=== PATIENT | male | born 1980 | race Caucasian/White ===

== ENCOUNTER → 2016-12-09 | Outpatient (CLI) | payer OTHER ==
--- NOTE | 2016-12-09 15:59 | PCVCIMAG ---
APPROVED REPORT Study performed: 12/09/2016 14:34:46 EXAM: Comprehensive 2D, Doppler, and color-flow Echocardiogram Status: routine BSA: 2.17 HR: 65 bpm Rhythm: NSR Other Information Study Quality: Good Indications Mitral Valve Prolapse. Hyperlipidemia. 2D Dimensions LVEF(%): 69.98 (>50%) IVSd: 9.36 (7-11mm)LVOT Diam: 23.27 (18-24mm) LVDd: 59.76 mm LVPWs: 25.15 mm PWd: 11.43 (7-11mm)Ascending Ao: 30.96 (22-36mm) LVDs: 35.75 (25-40mm) Left Atrium: 39.23 (27-40mm) Aortic Root: 29.16 mm LV Single Plane 4CH: 57.58 % LV Single Plane 2CH: 58.74 %Friedman's LVEF: 58.16 % Biplane EF: 60.5 % Volumes Left Atrial Volume (Systole) Single Plane 4CH: 74.97 mLSingle Plane 2CH: 59.08 mL LA ESV Index: 33.00 mL/m2 Aortic Valve AoV Peak Bossman.: 1.46 m/s AO Peak Gr.: 8.49 mmHgLVOT Max P.11 mmHg LVOT Max V: 0.84 m/s CHAGO Vmax: 2.46 cm2 Mitral Valve E/A Ratio: 1.1 MV Decel. Time: 180.05 ms MV E Max Bossman.: 0.60 m/s MV A Bossman.: 0.53 m/s TDI E/Lateral E': 6.67E/Medial E': 7.50 Medial E' Bossman.: 0.08 m/s Lateral E' Bossman.: 0.09 m/s Pulmonary Valve PV Peak Gr.: 3.33 mmHg Pulmonary Vein P Vein S: 0.45 m/sP Vein A: 0.43 m/s P Vein D: 0.48 m/sP Vein A Dur.: 124.6 msec P Vein S/D Ratio: 0.94 Left Ventricle Left ventricle is at the upper limits of normal. There is normal left ventricular wall thickness. Left ventricular systolic function is normal. The left ventricular ejection fraction is within the normal range. LVEF is 60-65%. The left ventricular diastolic function is normal. Right Ventricle The right ventricle is normal size. The right ventricular systolic function is normal. Atria The left atrium size is normal. The right atrium size is normal. Aortic Valve The aortic valve is normal in structure. Trace aortic regurgitation. There is no aortic valvular stenosis. Mitral Valve Mitral Valve Prolapse Trace to mild mitral regurgitation. No evidence of mitral valve stenosis. Tricuspid Valve The tricuspid valve is normal in structure. There is no tricuspid valve regurgitation noted. Pulmonic Valve The pulmonary valve is normal in structure. There is no pulmonic valvular regurgitation. Great Vessels The aortic root is normal in size. IVC is normal in size and collapses with >50% inspiration Pericardium There is no pericardial effusion. <Conclusion> Left ventricle is at the upper limits of normal. There is normal left ventricular wall thickness. LVEF is 60-65%. The left ventricular diastolic function is normal. The right ventricle is normal size. The left atrium size is normal. The aortic valve is normal in structure. Mitral Valve Prolapse Trace to mild mitral regurgitation. There is no tricuspid valve regurgitation noted. There is no pericardial effusion.
== END | disposition home or self-care (01) ==
LOC: PCVCIMAG 14:28
PROVIDERS: ATTEND Internal Medicine Cardiovascular Disease
DX: I08.0 Rheumatic disorders of both mitral and aortic valves (principal); E78.00 Pure hypercholesterolemia, unspecified; F32.9 Major depressive disorder, single episode, unspecified; I44.0 Atrioventricular block, first degree; K21.9 Gastro-esophageal reflux disease without esophagitis; Z79.899 Other long term (current) drug therapy
CPT/HCPCS: 80061; 93005; 93306; G0463

== ENCOUNTER → 2019-01-13 | Outpatient (CLI) | payer OTHER ==
--- NOTE | 2019-01-19 16:57 | PCVCIMAG ---
APPROVED REPORT Study performed: 01/13/2019 11:25:07 EXAM: Comprehensive 2D, Doppler, and color-flow Echocardiogram Patient Location: Echo lab Status: routine BSA: 2.17 HR: 63 bpmBP: 120/85 mmHg Rhythm: NSR Other Information Study Quality: Good Risk Factors: Cardiac Risk Factors: Hyperlipidemia Indications Mitral Valve Prolapse 2D Dimensions IVSd: 13.27 (7-11mm)LVOT Diam: 24.22 (18-24mm) LVDd: 53.09 mm PWd: 12.92 (7-11mm)Ascending Ao: 31.48 (22-36mm) LVDs: 44.09 (25-40mm) Left Atrium: 41.29 (27-40mm) Aortic Root: 36.42 mm LV Single Plane 4CH: 60.97 % LV Single Plane 2CH: 56.09 % Biplane EF: 56.9 % Volumes Left Atrial Volume (Systole) Single Plane 4CH: 68.03 mLSingle Plane 2CH: 87.95 mL LA ESV Index: 38.00 mL/m2 Aortic Valve AoV Peak Bossman.: 1.26 m/s AO Peak Gr.: 6.33 mmHgLVOT Max P.52 mmHg LVOT Max V: 1.06 m/s CHAGO Vmax: 3.89 cm2 Mitral Valve E/A Ratio: 0.9 MV Decel. Time: 230.45 ms MV E Max Bossman.: 0.51 m/s MV A Bossman.: 0.57 m/s IVRT: 152.25 ms TDI E/Lateral E': 5.67E/Medial E': 5.67 Medial E' Bossman.: 0.09 m/s Lateral E' Bossman.: 0.09 m/s Pulmonary Vein P Vein S: 0.32 m/sP Vein A: 0.58 m/s P Vein D: 0.42 m/sP Vein A Dur.: 72.7 msec P Vein S/D Ratio: 0.76 Tricuspid Valve TR Peak Bossman.: 1.42 m/s TR Peak Gr.: 8.09 mmHg Left Ventricle The left ventricle is normal size. There is normal LV segmental wall motion. There is normal left ventricular wall thickness. Left ventricular systolic function is normal. The left ventricular ejection fraction is within the normal range. LVEF is 60-65%. Right Ventricle The right ventricle is normal size. The right ventricular systolic function is normal. Atria The left atrium size is normal. The right atrium size is normal. Aortic Valve The aortic valve is normal in structure. No aortic regurgitation is present. There is no aortic valvular stenosis. Mitral Valve Mitral Valve prolapse. More pronounced in posterior leaflet. Mild mitral regurgitation. No evidence of mitral valve stenosis. Tricuspid Valve The tricuspid valve is normal in structure. Trace tricuspid regurgitation. Pulmonic Valve The pulmonary valve is normal in structure. There is no pulmonic valvular regurgitation. Great Vessels The aortic root is normal in size. IVC is normal in size and collapses >50% with inspiration. Pericardium There is no pericardial effusion. <Conclusion> The left ventricle is normal size. LVEF is 60-65%. The right ventricle is normal size. The left atrium size is normal. The aortic valve is normal in structure. Mitral Valve prolapse. More pronounced in posterior leaflet. Mild mitral regurgitation. Trace tricuspid regurgitation. The aortic root is normal in size. There is no pericardial effusion.
== END | disposition home or self-care (01) ==
LOC: PCVCIMAG 11:16
PROVIDERS: ATTEND Internal Medicine Cardiovascular Disease
DX: I34.0 Nonrheumatic mitral (valve) insufficiency (principal); I34.1 Nonrheumatic mitral (valve) prolapse
CPT/HCPCS: 93306